=== PATIENT | male | born 1990 | race Caucasian/White ===

== ENCOUNTER 2018-05-22 11:38 | Emergency (ER) | payer SELFPAY ==
[~2018-05-22] VITALS: Ht 170.2 cm; Wt 68.0 kg
[2018-05-22 11:46] VITALS: BP 134/71
[2018-05-22] MEDS ORDERED: ACETAMINOPHEN ES 500 MG TABLET PO ONE (12:00)
[2018-05-22] MEDS ORDERED: ACETAMINOPHEN ES 500 MG TABLET ONE (12:04)
--- NOTE | 2018-05-22 12:28 | NUR ---
Patient discharged to home in stable condition. Written and verbal after care instructions given. Patient verbalizes understanding of instruction.
== END 2018-05-22 12:27 | disposition home or self-care (01) ==
LOC: ER 11:38
DX: J06.9 Acute upper respiratory infection, unspecified (principal); L72.3 Sebaceous cyst
CPT/HCPCS: 86403-TC; 87070-TC